=== PATIENT | male | born 1960 | race Caucasian/White ===

== ENCOUNTER → 2020-05-08 | Outpatient (CLI) | payer MEDICARE ==
[~2020-05-08] MED LIST: ALBU8.5H8 INH; AMLO-150 PO; ASPI81TA45 PO; ATEN25TA PO; CELE200C PO; CHOL10003 PO; FLUT9.9S NAS; GABA300C PO; LISI-170 PO; MELA5TAB14 PO; METF500T17 PO; MULT1CAP6 PO; PANT40TA6 PO; SIMV5TAB14 PO; URSO300C27 PO; ZOLP5TAB6 PO
== END | disposition home or self-care (01) ==
LOC: STAR 09:00
PROVIDERS: ATTEND Neurological Surgery
DX: Z20.828 Contact with and (suspected) exposure to other viral communicable diseases (principal); M51.36 Other intervertebral disc degeneration, lumbar region
CPT/HCPCS: 87635

== ENCOUNTER 2020-05-13 09:50 | Day surgery (SDC) | payer MEDICARE, OTHER ==
[~2020-05-13] VITALS: Ht 177.8 cm; Wt 105.2 kg
[~2020-05-13 09:50] MED LIST changes: +BACITRACIN 50,000 UNIT ONE; +BUPIVACAINE/PF 0.5% ONE; +EPINEPHRINE 1 MG/ML, 1ML ONE; +THROMBIN 20,000 UNIT VIAL TP ONE
[2020-05-13] MEDS ORDERED: GABAPENTIN 300 MG CAPSULE PO ONE (10:30)
[2020-05-13] MEDS ORDERED: SCOPOLAMINE 1MG PATCH TD ONE (10:30)
[2020-05-13] MEDS ORDERED: CHLORHEXIDINE 15 ML UDC MM ONE (10:30)
[2020-05-13] MEDS ORDERED: ACETAMINOPHEN 500 MG TABLET PO ONE (10:30)
[2020-05-13] MEDS ORDERED: LACTATED RINGERS 1,000 ML IV SCH (10:30)
[2020-05-13] MEDS ORDERED: DEXAMETHASONE 4 MG/ML, 5ML ONE (10:43)
[2020-05-13] MEDS ORDERED: FENTANYL PF 250 MCG/5ML ONE (10:43)
[2020-05-13] MEDS ORDERED: ONDANSETRON 2MG/ML, 2ML ONE (10:43)
[2020-05-13] MEDS ORDERED: LIDOCAINE-MPF 2% ,5ML ONE (10:43)
[2020-05-13] MEDS ORDERED: PROPOFOL 10 MG/ML, 20ML ONE (10:43)
[2020-05-13] MEDS ORDERED: CEFAZOLIN 1,000 MG ONE ×2 (10:43)
[2020-05-13] MEDS ORDERED: SUCCINYLCHOLINE 20 MG/ML, 10ML ONE (10:43)
[2020-05-13] MEDS ORDERED: MIDAZOLAM 1 MG/ML, 2ML ONE (10:43)
[2020-05-13 11:07] LABS: INTERNATIONAL NORMALIZED RATIO 1.01 (0.93-1.1); PROTHROMBIN TIME 10.7 Seconds (9.6-11.5)
[2020-05-13] MEDS ORDERED: FENTANYL PF 100 MCG/2ML ONE (13:50)
[2020-05-13] MEDS ORDERED: HYDROmorphone 1 MG/ML, 1ML INJ ONE (13:50)
[2020-05-13] MEDS ORDERED: OXYcodone 5 MG/5 ML ORAL.SOL UDC ONE (13:51)
[2020-05-13] MEDS ORDERED: MEPERIDINE/PF 25MG/0.5ML IVPush PRN (14:00)
[2020-05-13] MEDS ORDERED: PROMETHAZINE 25 MG/ML, 1ML IVPush PRN (14:00)
[2020-05-13] MEDS ORDERED: OXYcodone 5 MG/5 ML ORAL.SOL UDC PO PRN (14:00)
[2020-05-13] MEDS ORDERED: DIPHENHYDRAMINE 50 MG/ML, 1ML IVPush PRN (14:00)
[2020-05-13] MEDS ORDERED: ACETAMINOPHEN 325 MG TABLET PO PRN (14:00)
[2020-05-13] MEDS ORDERED: ONDANSETRON 2MG/ML, 2ML IVPush PRN (14:00)
[2020-05-13] MEDS ORDERED: DIAZEPAM 5 MG/ML, 2ML IVPush PRN (14:00)
[2020-05-13] MEDS ORDERED: ALBUTEROL/IPRATROPIUM 2.5MG/0.5MG, 3 ML NPPB PRN (14:00)
[2020-05-13] MEDS ORDERED: LABETALOL 5MG/ML, 20ML IV PRN (14:00)
[2020-05-13] MEDS ORDERED: METHOCARBAMOL 1,000 MG in DEXTROSE 5% 100 ML IV ONE (14:00)
[2020-05-13] MEDS ORDERED: FENTANYL PF 100 MCG/2ML IV PRN (14:00)
[2020-05-13] MEDS ORDERED: hydrALAzine 20 MG/ML, 1ML IV PRN (14:00)
[2020-05-13] MEDS ORDERED: OXYC-380 PO (14:08)
[2020-05-13] MEDS ORDERED: METH750T87 PO (14:08)
[2020-05-13] MEDS: HYDROmorphone 1 MG/ML, 1ML INJ IVPush PRN ×2 (14:12→14:22)
== END 2020-05-13 16:20 | disposition home or self-care (01) ==
LOC: OUT 09:50
PROVIDERS: ATTEND Neurological Surgery
DX: M51.16 Intervertebral disc disorders with radiculopathy, lumbar region (principal); I10 Essential (primary) hypertension; J45.909 Unspecified asthma, uncomplicated; E11.9 Type 2 diabetes mellitus without complications; G47.33 Obstructive sleep apnea (adult) (pediatric); K21.9 Gastro-esophageal reflux disease without esophagitis; E78.00 Pure hypercholesterolemia, unspecified; Z79.01 Long term (current) use of anticoagulants; Z79.82 Long term (current) use of aspirin; Z79.899 Other long term (current) drug therapy; Z90.49 Acquired absence of other specified parts of digestive tract; Z98.890 Other specified postprocedural states
CPT/HCPCS: 63042; 72100; 82962; 85610; 85730; 95938; 95941; J0171; J0330; J0690; J1100; J1170; J2250; J2405; J2704; J2800; J3010; J7120